=== PATIENT | male | born 1965 | race Hispanic/Latino ===

== ENCOUNTER → 2020-02-16 17:30 | Outpatient (CLI) | payer OTHER, MEDICAID, SELFPAY ==
--- NOTE | 2020-02-16 | DI.MRI.S_ITS ---
PROCEDURE: MR SHOULDER LT WO CON INDICATIONS: Pain in left shoulder TECHNIQUE: Noncontrast oblique coronal T2 fast spin echo with fat saturation, oblique sagittal T1 spin echo and T2 fast spin echo with fat saturation, axial T1 spin echo and T2 fast spin echo with fat saturation through the shoulder. COMPARISON: None. FINDINGS: Image quality: Excellent. Rotator cuff: The supraspinatus, infraspinatus, and subscapularis tendons appear free of disruption throughout but the supraspinatus tendon is abnormally thickened, with striations of fluid signal within laterally, over its course from its insertion to medial from the AC joint margin. Impingement by AC joint osteoarthritis is prominent against this area of the supraspinatus tendon. Sagittal images demonstrate no muscle atrophy. Bones and bursae: No bone marrow contusions or fractures. There is near severe acromioclavicular joint degeneration with both fibers in osseous hypertrophy and edema in the adjacent AC joint osseous margins and within the joint space itself. The acromion demonstrates conventional anatomy, without an os acromiale. No pathologic subacromial-subdeltoid or subcoracoid bursal fluid is present. Capsule and soft tissues: In the absence of intra-articular contrast, the labrum and glenohumeral ligaments appear intact. The long head of the biceps tendon demonstrates normal location and morphology. The coracohumeral ligament is normal in thickness. 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 This portion of the rotator cuff is abnormally thickened, edematous and contains internal striated fluid signal consistent with partial-thickness tear and chronic tendinosis. Glenohumeral joint degenerative osteoarthritis is moderate, no intra-articular loose body or joint effusion is found. No prior trauma is identified. Dictated by: Reece Summers M.D. on 02/17/2020 at 11:09 Approved by: Reece Summers M.D. on 02/17/2020 at 11:15
== END ==
PROVIDERS: PCP Acupuncturist; Referring Provider Acupuncturist; Visit Provider Acupuncturist
DX: M25.512 Pain in left shoulder (principal); M19.012 Primary osteoarthritis, left shoulder
CPT/HCPCS: 73221

== ENCOUNTER → 2023-12-24 11:59 | Outpatient (CLI) | payer OTHER, SELFPAY ==
--- NOTE | 2023-12-24 12:01 | DI.MRI.S_ITS ---
PROCEDURE: MR LUMBAR SPINE WO CON INDICATIONS: LUMBAR RADICULOPATHY TECHNIQUE: Noncontrast sagittal T1 spin echo and T2 fast echo, sagittal STIR, and T2 fast spin echo through the lumbar spine. In cases with scoliosis, additional coronal T2 fast spin echo may be performed. COMPARISON: [facility], MR, MR LUMBAR SPINE WITHOUT CONTRAST, 12/10/2020, 11:29. FINDINGS: Image quality: Excellent. Alignment and Curvature: There is normal bony alignment. Bone Marrow: Modic type 1 degenerative endplate changes at L4-5 and L5-S1. Marrow is of normal overall signal. No acute vertebral body compression fractures. Spinal Cord: Conus medullaris terminates at the L1 level. Visualized cord demonstrates normal signal and size. Paraspinous Soft Tissues: No paravertebral masses. T12-L1: Normal appearance. L1-L2: Disc desiccation and mild posterior disc bulge. Mild facet arthropathy. Mild central canal stenosis. Stable moderate right and moderate to severe left neural foraminal stenosis. L2-L3: Disc desiccation and posterior disc bulge. Facet arthropathy and thickening of ligamentum flavum. Stable mild central canal stenosis. Stable moderate right and moderate to severe left neural foraminal stenosis. L3-L4: Disc desiccation and posterior disc bulge. Facet arthropathy and thickening of the ligamentum flavum. Epidural lipomatosis. Mildly progressed moderate central canal stenosis. Moderate to severe left neural foraminal stenosis is progressed. Stable moderate right neural foraminal stenosis. L4-L5: Disc desiccation height loss. Posterior disc bulge. Facet arthropathy and thickening of ligamentum flavum. Epidural lipomatosis. Mild central canal stenosis. Stable moderate to severe right and moderate left neural foraminal stenosis. L5-S1: Disc desiccation height loss. Posterior disc bulge. Facet arthropathy. No central canal stenosis. Moderate to severe bilateral neural foraminal stenosis is stable. IMPRESSION: Multilevel degenerative changes of the lumbar spine with progression L3-L4. Otherwise, degenerative changes are similar in appearance compared to prior exam as described above with multilevel moderate central canal stenosis and moderate to severe neural foraminal stenosis. Dictated by: Daniel Freedman M.D. on 12/24/2023 at 14:41 Approved by: Daniel Freedman M.D. on 12/24/2023 at 14:46
== END ==
PROVIDERS: PCP Acupuncturist; Referring Provider Acupuncturist; Visit Provider Acupuncturist
DX: M47.26 Other spondylosis with radiculopathy, lumbar region (principal); M47.27 Other spondylosis with radiculopathy, lumbosacral region; M48.061 Spinal stenosis, lumbar region without neurogenic claudication; M48.07 Spinal stenosis, lumbosacral region
CPT/HCPCS: 72148

== ENCOUNTER → 2025-01-05 | Outpatient (CLI) | payer BC, SELFPAY ==
--- NOTE | 2025-01-05 | DI.MRI.S_ITS ---
PROCEDURE: MR SHOULDER LT WO CON INDICATIONS: SARINA OSTEOARTHRITIS TECHNIQUE: Noncontrast oblique coronal T2 fast spin echo with fat saturation, oblique sagittal T1 spin echo and T2 fast spin echo with fat saturation, axial T1 spin echo and T2 fast spin echo with fat saturation through the shoulder. COMPARISON: [facility], MR, MR SHOULDER RT WO CON, 01/05/2025, 16:50. FINDINGS: Image quality: Excellent. Rotator cuff: Full-thickness rupture involving mid to posterior fibers of supraspinatus approximately 1.4 cm from its insertion on humeral head is seen with up to 1.8 cm medial retraction of torn tendon fibers to the level of acromion and a fluid-filled gap measures up to 1.9 cm in AP dimension. Low-grade articular surface partial-thickness tear involving distal infraspinatus at its insertion on the humeral head is seen. Low to moderate grade intrasubstance partial-thickness tear involving distal subscapularis is also noted. Sagittal images demonstrate very mild supraspinatus muscle atrophy. Bones and bursae: No bone marrow contusions or fractures. Moderate acromioclavicular joint osteoarthritic changes are seen. Type 2 acromion without an os acromiale. Small to moderate joint effusion and subacromial subdeltoid bursal fluid, no loose bodies. Capsule and soft tissues: There is fraying of superior anterior glenoid labrum and T2 hyperintense signal suggestive of superior anterior glenoid labral tear. Similar signal abnormality and fraying involving inferior glenoid labrum is also noted. Tendinosis and low-grade intrasubstance partial-thickness tear involving proximal intra- articular portion of long head of biceps is seen. IMPRESSION: 1. Full-thickness rupture involving mid to posterior fibers of supraspinatus approximately 1.4 cm from its insertion on humeral head with up to 1.8 cm medial retraction of torn tendon fibers to the level of acromion. Fluid-filled gap measures 1.9 cm in AP dimension. Very mild supraspinatus muscle atrophy. 2. Low-grade articular surface partial-thickness tear involving distal infraspinatus. Low to moderate grade intrasubstance partial-thickness tear involving distal subscapularis. 3. Moderate acromioclavicular joint osteoarthritis. No acute fracture or dislocation. Small to moderate joint effusion and subacromial subdeltoid bursal fluid, no loose bodies. 4. Suggestion of superior anterior glenoid labral tear and inferior glenoid labral tear. 5. Tendinosis and low-grade intrasubstance partial-thickness tear involving proximal long head of biceps. Dictated by: Adán Brasher M.D. on 01/07/2025 at 14:43 Approved by: Adán Brasher M.D. on 01/07/2025 at 14:52
--- NOTE | 2025-01-05 | DI.MRI.S_ITS ---
PROCEDURE: MR SHOULDER RT WO CON INDICATIONS: SARINA OSTEOARTHRITIS TECHNIQUE: Noncontrast oblique coronal T2 fast spin echo with fat saturation, oblique sagittal T1 spin echo and T2 fast spin echo with fat saturation, axial T1 spin echo and T2 fast spin echo with fat saturation through the shoulder. COMPARISON: [facility], MR, MR SHOULDER LT WO CON, 02/16/2020, 17:51. FINDINGS: Image quality: Excellent. Rotator cuff: Moderate grade articular surface partial-thickness tear involving distal supraspinatus approximately 1.2 cm from its insertion on humeral head is seen with up to 1.2 cm medial retraction of torn tendon fibers and a fluid-filled gap measures 1.4 cm in AP dimension. Focal areas of full-thickness perforation involving posterior fibers of distal supraspinatus is likely present. Low to moderate grade articular surface partial-thickness tear involving distal infraspinatus at its insertion on the humeral head is also seen. Low-grade intrasubstance partial-thickness tear is seen involving distal subscapularis. Sagittal images demonstrate no significant rotator cuff muscle atrophy. Bones and bursae: No bone marrow contusions or fractures. Moderate acromioclavicular joint osteoarthritic changes are seen with joint space narrowing and downward osteophyte formation depressing on musculotendinous junction of supraspinatus. Type 2 acromion without an os acromiale. Small to moderate amount of joint effusion and subacromial subdeltoid bursal fluid, no loose bodies. Capsule and soft tissues: Significant fraying of superior anterior glenoid labrum with T2 hyperintense signal consistent with superior anterior labral tear at 12 to 2 o'clock position. The long head of the biceps tendon appears mildly thickened IMPRESSION: 1. Moderate to high-grade articular surface partial-thickness tear involving distal supraspinatus approximately 1.2 cm from its insertion on the humeral head with up to 1.2 cm medial retraction of torn tendon fibers and a fluid-filled gap measures 1.4 cm in the P dimension. Focal areas of full-thickness perforation involving anterior and posterior fibers of distal supraspinatus is also likely present. No significant rotator cuff muscle atrophy. 2. Low to moderate grade articular surface partial-thickness tear involving distal infraspinatus. Low-grade intrasubstance partial-thickness tear involving distal subscapularis. 3. Moderate acromioclavicular joint osteoarthritis. No fracture or dislocation. Moderate joint effusion and subacromial subdeltoid bursal fluid, no loose bodies. 4. Suggestion of superior anterior glenoid labral tear at 12 to 2 o'clock position. 5. Proximal intra-articular portion of long head of biceps tendinosis. Dictated by: Adán Brasher M.D. on 01/07/2025 at 14:36 Approved by: Adán Brasher M.D. on 01/07/2025 at 14:43
--- NOTE | 2025-01-05 16:18 | DI.MRI.S_ITS ---
PROCEDURE: MR CERVICAL SPINE WO CON INDICATIONS: HX CERVICAL SPINE FUSION TECHNIQUE: Noncontrast sagittal T1 spin echo and T2 fast spin echo, sagittal STIR, foraminal oblique sagittal T2 fast spin echo, and axial gradient echo or T2 fast spin echo through the cervical spine. COMPARISON: None. FINDINGS: Image quality: Excellent. Alignment and Curvature: There is straightening of the normal cervical lordosis. Bone Marrow: Marrow demonstrates normal overall signal. Osseous fusion at C4- C5 and C5-C6. Spinal Cord: Visualized spinal cord has normal size and signal. No cerebellar tonsillar herniation. Paraspinous Soft Tissues: No paravertebral masses. Prevertebral soft tissues are normal in thickness. C2-C3: Shallow disc bulge with facet arthropathy results in mild right foraminal stenosis. C3-C4: Moderate central canal stenosis with severe bilateral foraminal stenosis secondary to disc bulge endplate spurring and facet arthropathy. C4-C5: Fusion. Mild central canal stenosis with mild bilateral foraminal stenosis. C5-C6: Effusion. Severe right and moderate left foraminal stenosis with mild central canal stenosis. C6-C7: Severe central canal stenosis with severe bilateral foraminal stenosis secondary to broad-based disc bulging with facet arthropathy. C7-T1: Mild bilateral foraminal stenosis. IMPRESSION: 1. Complete osseous fusion from C4-C6. 2. Multilevel degenerative disc disease results in varying degrees of central canal and foraminal stenosis most pronounced at the C6-C7 level. Dictated by: Thu Carlisle M.D. on 01/06/2025 at 16:42 Approved by: Thu Carlisle M.D. on 01/06/2025 at 16:45
== END ==
LOC: MRI 16:15
PROVIDERS: PCP Acupuncturist; Referring Provider Acupuncturist; Visit Provider Orthopaedic Surgery Foot and Ankle Surgery
DX: M48.02 Spinal stenosis, cervical region (principal); M50.323 Other cervical disc degeneration at C6-C7 level; Z98.1 Arthrodesis status; M19.012 Primary osteoarthritis, left shoulder; M19.011 Primary osteoarthritis, right shoulder; M50.30 Other cervical disc degeneration, unspecified cervical region; M75.122 Complete rotator cuff tear or rupture of left shoulder, not specified as traumatic; M62.512 Muscle wasting and atrophy, not elsewhere classified, left shoulder; M25.412 Effusion, left shoulder; M25.411 Effusion, right shoulder; S46.112A Strain of muscle, fascia and tendon of long head of biceps, left arm, initial encounter; M75.111 Incomplete rotator cuff tear or rupture of right shoulder, not specified as traumatic
CPT/HCPCS: 72141; 73221